=== PATIENT | female | born 1955 | race Hispanic/Latino ===

== ENCOUNTER 2016-09-30 14:51 | Emergency (ER) | payer OTHER ==
[2016-09-30 14:52] VITALS: BMI 25.7
[2016-09-30 15:08] VITALS: TEMP 98; O2SAT 98
--- NOTE | 2016-09-30 15:18 | ED PDOC ---
Arrival/HPI - General Chief Complaint: Back Pain Time Seen by Provider: 09/30/16 15:16 Historian: Patient - History of Present Illness Narrative History of Present Illness (Text): 09/30/16 60 yo female, employee of [employer], come in for evaluation of lower back pain gradually developed since yesterday " was pushing car and jerked to the side". Pt sts, "yesterday pain was mild and since today AM got significantly worse, hurts to turn from [id number]". Otherwise, pt denies fall , denies direct trauma or injury, fever, chills, recent illness, CP, SOB, dyspnea, abd. pain, N/V, UTI sx, saddle anesthesia, incontinence, denies weakness, sensory or vascular deficits to B/L lEs. Ambulate to ED for evaluation , not in any apparent distress. Past Medical History - Provider Review Nursing Documentation Reviewed: Yes - Travel History Have you recently traveled outside [place] w/in the past 3 mons?: No - Past History Past History: No Previous - Infectious Disease Hx of Infectious Diseases: None - Tetanus Immunization Tetanus Immunization: Unknown - Past Medical History Past Medical History: No Previous - Cardiac Hx Cardiac Disorders: No - Pulmonary Hx Respiratory Disorders: No - Neurological Hx Neurological Disorder: No - HEENT Hx HEENT Disorder: No - Renal Hx Renal Disorder: No - Endocrine/Metabolic Hx Endocrine Disorders: No - Hematological/Oncological Hx Blood Disorders: No - Integumentary Hx Dermatological Disorder: No - Musculoskeletal/Rheumatological Hx Musculoskeletal Disorders: Yes Hx Arthritis: Yes - Gastrointestinal Hx Gastrointestinal Disorders: No - Genitourinary/Gynecological Hx Genitourinary Disorders: No - Psychiatric Hx Psychophysiologic Disorder: No Hx Depression: No Hx Emotional Abuse: No Hx Physical Abuse: No Hx Substance Use: No - Past Surgical History Past Surgical History: Non-Contributing - Surgical History Hx Section: Yes Hx Orthopedic Surgery: Yes (KNEE) - Anesthesia Hx Anesthesia: Yes Hx Anesthesia Reactions: No Hx Malignant Hyperthermia: No - Suicidal Assessment Feels Threatened In Home Enviroment: No Family/Social History - Physician Review Nursing Documentation Reviewed: Yes Family/Social History: No Known Family HX Smoking Status: Light Smoker < 10 Cigarettes Daily Hx Alcohol Use: No Hx Substance Use: No Hx Substance Use Treatment: No Allergies/Home Meds Allergies/Adverse Reactions: Allergies cortisone Allergy (Verified 01/13/16 15:13) ANAPHYLAXIS STEROIDS Allergy (Mild, Uncoded 09/21/14 14:05) RASH Home Medications: Home Meds Medication Instructions Recorded Confirmed Adalimumab [Humira] 10 mg SC Q30D 09/30/16 09/30/16 Review of Systems - Review of Systems Constitutional: Normal Eyes: Normal ENT: Normal Respiratory: Normal Cardiovascular: Normal Gastrointestinal: Normal Genitourinary Female: Normal Musculoskeletal: Back Pain Skin: Normal Neurological: Normal Endocrine: Normal Hemo/Lymphatic: Normal Psychiatric: Normal Physical Exam Vital Signs Temp Pulse Resp BP Pulse Ox 09/30/16 15:03 98.0 F 60 18 158/92 H 98 Temperature: Afebrile Blood Pressure: Normal Pulse: Regular Respiratory Rate: Normal Appearance: Positive for: Well-Appearing, Non-Toxic, Comfortable Pain Distress: None Mental Status: Positive for: Alert and Oriented X 3 - Systems Exam Conjunctiva: Present: Normal Mouth: Present: Moist Mucous Membranes Neck: Present: Trachea Midline Respiratory/Chest: Present: Clear to Auscultation, Good Air Exchange. No: Respiratory Distress, Accessory Muscle Use Cardiovascular: Present: Regular Rate and Rhythm, Normal S1, S2. No: Murmurs Abdomen: Present: Normal Bowel Sounds. No: Tenderness, Distention, Peritoneal Signs, Rebound, Guarding Back: Present: Paraspinal Tenderness (diffuse lumbar). No: Midline Tenderness Upper Extremity: Present: Normal ROM Lower Extremity: Present: NORMAL PULSES, Normal ROM. No: Edema, CALF TENDERNESS , Tenderness, Deformity Neurological: Present: GCS=15, CN II-XII Intact, Speech Normal, Motor Func Grossly Intact, Normal Sensory Function, Norm Deep Tendon Reflexes Skin: Present: Warm, Dry, Normal Color. No: Rashes Psychiatric: Present: Alert, Oriented x 3, Normal Insight, Normal Concentration Medical Decision Making ED Course and Treatment: 09/30/16 On re-evaluation, pt is afebrile, hemodynamicaly stable. Non-toxic. Ambulatory in ED with stable gait. Abd: benign. Back: (-) midline tenderness, (-) CVA tenderness. Neurologicaly intact. Imaging review and appears normal study. Pt has clinical findings c/w lumbar strain. Pt advised on course of ds. ref. to f/u with PMD in 2-3 days for re-evaluation. Return to ED if any worsening or new changes. - RAD Interpretation Radiology Orders: 09/30/16 15:23 LS SPINE AP/LAT [RAD] Stat (-) acute abnormalities - Medication Orders Current Medication Orders: Discontinued Medications Diazepam (Valium) 5 mg PO ONCE ONE Stop: 09/30/16 15:24 Ketorolac Tromethamine (Toradol) 30 mg IM STAT STA Stop: 09/30/16 15:26 Tramadol HCl (Ultram) 50 mg PO STAT STA Stop: 09/30/16 15:27 Disposition/Present on Arrival - Present on Arrival Any Indicators Present on Arrival: No History of DVT/PE: No History of Uncontrolled Diabetes: No Urinary Catheter: No History of Decub. Ulcer: No History Surgical Site Infection Following: None - Disposition Have Diagnosis and Disposition been Completed?: Yes Diagnosis: Lumbar strain Disposition: HOME/ ROUTINE Disposition Time: 16:21 Patient Plan: Discharge Condition: STABLE Discharge Instructions (ExitCare): Acute Low Back Pain (ED) Additional Instructions: FOLLOW UP WITH [facility]OYEE [facility] IN 24 HOURS FOR RE-EVALUATION. NO PHYSICAL ACTIVITY FOR 1 WEEK AVOID HEAVY LIFTING, BENDING, ETC TAKE PAIN MEDICATION NEED FOR PAIN FOLLOW UP WITH PMD IN 2-3 DAYS FOR RE-EVALUATION. RETURN TO ED IF ANY WORSENING OR NEW CHANGES. Prescriptions: Ibuprofen [Motrin Tab] 600 mg PO Q6 #14 tab Methocarbamol [Robaxin] 500 mg PO TID #14 tab traMADol [Ultram] 50 mg PO TID #7 tab Referrals: Veto Vargas MD [Primary Care Provider] - Follow up with primary Forms: [employer] (Kiswahili), WORK NOTE
[2016-09-30 16:50] VITALS: BP 116/80; PULSE 64; RESP 16
--- NOTE | 2016-09-30 17:14 | RAD ---
PROCEDURE: Radiographs of the Lumbar Spine. HISTORY: pain COMPARISON: No prior. FINDINGS: BONES: No evidence of acute compression fracture nor retropulsed fragments. The vertebral bodies exhibit relatively normal stature. Vertebral bodies and facets normally aligned. . . DISC SPACES: Lumbar disc space heights relatively maintained. . Minor disc space narrowing seen in the lower thoracic region. Tiny marginal anterolateral osteophyte formation seen at several levels. Facet joints appear slightly hypertrophic in the lower lumbar region OTHER FINDINGS: None. IMPRESSION: No acute fractures. Minor multilevel degenerative spondylosis
== END 2016-09-30 16:53 | disposition home or self-care (01) ==
LOC: ED 14:51
DX: S39.012A Strain of muscle, fascia and tendon of lower back, initial encounter (principal); X50.0XXA Overexertion from strenuous movement or load, initial encounter; Y93.89 Activity, other specified; Y92.89 Other specified places as the place of occurrence of the external cause
CPT/HCPCS: 72100; 96372; 99283; J1885